=== PATIENT | male | born 1950 | race Caucasian/White ===

== ENCOUNTER 2022-01-12 10:35 | Day surgery (SDC) | payer MEDICARE ==
[~2022-01-12 10:35] MED LIST: ALPRAZolam 0.25 MG TAB PO PRN; ALPRAZolam 0.5 MG TAB PO PRN; ASPIRIN 325 MG TAB PO STA; ATORVASTATIN 80 MG TAB PO STA; HEPARIN SODIUM,PORCINE 10,000 UNIT in SODIUM CHLORIDE 0.9% 1,000 ML IRRIGATION PRN; HEPARIN SODIUM,PORCINE 2,500 UNIT in SODIUM CHLORIDE 0.9% 250 ML IRRIGATION PRN; NITROGLYCERIN SL TABS 0.4 MG TAB SUBLINGUAL PRN
[2022-01-12] MEDS: SODIUM CHLORIDE 0.9% 1,000 ML in EMPTY BAG 1 BAG IV SCH ×2 (11:25→19:27)
[2022-01-12 11:50] LABS: Basophils # (A) 0.1 k/uL (0-0.2); Basophils % (A) 1 %; Eosinophils # (A) 0.1 k/uL (0-0.7); Eosinophils % (A) 2 %; HCT 46.2 % (39.0-53.0); HGB 14.7 gm/dL (13.0-17.5); Lymphocytes # (A) 1.9 k/uL (1.0-4.8); Lymphocytes % (A) 38 %; MCH 30.8 pg (25.0-35.0); MCHC 31.8 g/dL (31.0-37.0); Monocytes # (A) 0.4 k/uL (0-1.0); Monocytes % (A) 8 %; Neutrophils # (A) 2.3 k/uL (1.3-7.7); Neutrophils % (A) 48 %; Platelet Count 199 k/uL (150-450); RBC 4.76 m/uL (4.30-5.90); RDW 12.6 % (11.5-15.5); WBC 4.9 k/uL (3.8-10.6)
[2022-01-12 11:57] LABS: African American GFR (CKD) >90 (>60 ml/min/1.73 sqM); Anion Gap 6 mmol/L; Blood Urea Nitrogen 19 mg/dL (9-20); Calcium 9.2 mg/dL (8.4-10.2); Carbon Dioxide 27 mmol/L (22-30); Chloride 105 mmol/L (98-107); Glucose 109 mg/dL (74-99); Non-African American GFR(CKD) 87 (>60 ml/min/1.73 sqM); Potassium 4.2 mmol/L (3.5-5.1); Sodium 138 mmol/L (137-145)
[2022-01-12] MEDS ORDERED: VERAPAMIL 2.5 MG/ML 2 ML AMP ONE (12:51)
[2022-01-12] MEDS ORDERED: HEPARIN SODIUM 1,000 UN/ML (10ML VL) ONE (12:52)
[2022-01-12] MEDS ORDERED: MIDAZOLAM 2 MG/2 ML VIAL IV ONE ×2 (13:05)
[2022-01-12] MEDS ORDERED: LIDOCAINE 1% INJ 10MG/ML (5 ML VIAL-PF) SQ ONE (13:05)
[2022-01-12] MEDS ORDERED: VERAPAMIL SYRINGE (5 MG/10 ML) INTRAARTER ONE (13:07)
[2022-01-12] MEDS: HEPARIN SODIUM 1,000 UN/ML (10ML VL) IV ONE ×2 (13:11→13:18)
[2022-01-12] MEDS ORDERED: ADENOSINE 180 MG in SODIUM CHLORIDE 0.9% 30 ML IVP ONE (13:40)
[2022-01-12] MEDS ORDERED: RX INFO: IV CONTRAST WAS GIVEN 1 EACH MISC MISCELLANE PRN (13:48)
--- NOTE | 2022-01-12 13:52 | P.PCN ---
Date of Procedure: 01/12/22 Operative Findings: CARDIAC CATHETERIZATION PERFORMING PHYSICIAN: Juan Carlos Mckeon MD, RPVI PROCEDURE PERFORMED: 1. Selective right and left coronary angiogram 2. Fractional flow reserve of the LAD INDICATION: Chest discomfort with exertion concerning for angina in this 71-year-old gentleman who is known to have CAD as well as hypertension and dyslipidemia COMPLICATION: None APPROACH: Right radial artery LEVEL OF SEDATION: Moderate with a sedation length of 14 minutes PROCEDURE DESCRIPTION: After obtaining an informed consent, the patient was brought to cardiac open hearth laborer. Local anesthesia was performed using lidocaine subcutaneously. The right radial artery was cannulated using Seldinger technique, the guidewire passed easily, following that we advanced a 5-[place] sheath dilator assembly, the wire and dilator were removed and sheath was flushed. Following that, 2 mg of verapamil along with 5000 unit heparin were given. Additional 5000 use of heparin given throughout the procedure Selective right and left coronary angiogram using a 6-[place] JR4 and JL 3.5 catheters. After zeroing the Doppler wire and equalizing between the Doppler wire and the guiding catheter which was JL 3.5 guiding catheter with an FFR her IV adenosine infusion and that came in to be nonischemic and 0.80 Following that we did fractional flow reserve of the LAD. That was performed using JL 3.5 guiding catheter. The procedure was completed there was no complication. SELECTIVE CORONARY ANGIOGRAM: The right coronary artery: Is a large caliber vessel and a dominant vessel. The proximal RCA has eccentric lesion appears to be in the range of 50%. The RCA is extremely tortuous. Distally bifurcates into PDA and PLV branches both appear to have intermediate disease only. Left main: Distally has mild disease. The left main is very long. Bifurcates into LCx and LAD The left circumflex: Is a large caliber vessel and codominant vessel. The LCx proximity gives rises into an OM branch which has mild disease proximally. Distally gives a PDA branch. As a matter of fact LCx is codominant vessel The left anterior descending artery: The proximal LAD appeared to have mild disease only. Gives rises into a diagonal branch which has an ostial lesion appears to be in the range of 50-60%. The mid LAD after the diagonal has eccentric lesion appears to be in the range of 50%. FFR was performed and came in to be an 0.88 which is nonischemic. CONCLUSION: 1. Mild disease involving the RCA which is extremely tortuous 2. Intermediate disease involving the LAD. FFR was performed and came in to be nonischemic POSTPROCEDURE MANAGEMENT: Medical treatment and follow-up with the patient
[2022-01-12] MEDS ORDERED: SODIUM CHLORIDE 0.9% 1,000 ML IV SCH (14:00)
[2022-01-12 19:19] VITALS: BP 171/85; PULSE 62; RESP 18; TEMP 98.7
== END 2022-01-12 19:42 | disposition home or self-care (01) ==
LOC: CATHCVL 10:35 → 6NMEDSUR 14:54 → CATHCVL 19:42
PROVIDERS: ATTEND Internal Medicine Interventional Cardiology
DX: I25.10 Atherosclerotic heart disease of native coronary artery without angina pectoris (principal); I10 Essential (primary) hypertension; E78.5 Hyperlipidemia, unspecified; Z20.822 Contact with and (suspected) exposure to COVID-19
CPT/HCPCS: 93571; 93454; 80048; 85025; 87635; C1769 ×2; C1887; C1894; J2250; J2001; J1644; J0153